=== PATIENT | female | born 1985 | race African-American/Black ===

== ENCOUNTER 2019-06-21 20:30 | Emergency (ER) | payer BC ==
[~2019-06-21] VITALS: Ht 160 cm; Wt 61.7 kg
--- NOTE | 2019-06-21 20:45 | NUR ---
Dr. Maradiaga at bedside for MSE
--- NOTE | 2019-06-21 20:50 | NUR ---
Patient ambulating with steady gait. A&O x4. c/o abdominal pain that started yesterday. Patient states that she is 6 weeks . Patient also states that vaginal bleeding noted 1 hour [facility] at ER. Breathing even and unlabored. Speech is clear and able to make needs known / follow commands. and kids at bedside.
[2019-06-21 21:08] LABS: BASOPHILS % (AUTO) 0.2 % (0.0-2.0); EOSINOPHILS # (AUTO) 0.1 K/uL (0.0-0.7); EOSINOPHILS % (AUTO) 0.6 % (0.0-7.0); HEMATOCRIT 38.7 % (31.2-41.9); HEMOGLOBIN 12.4 g/dL (10.9-14.3); LYMPHOCYTES # (AUTO) 1.7 K/uL (20.0-40.0); LYMPHOCYTES % (AUTO) 21.3 % (20.5-51.5); MEAN CORPUSCULAR HEMOGLOBIN 26.5 uug (24.7-32.8); MEAN CORPUSCULAR HGB CONC 32 g/dL (32.3-35.6); MEAN CORPUSCULAR VOLUME 82.7 fL (75.5-95.3); MONOCYTES # (AUTO) 0.7 K/uL (2.0-10.0); MONOCYTES % (AUTO) 8.6 % (0.0-11.0); NEUTROPHILS # (AUTO) 5.5 K/uL (1.8-8.9); NEUTROPHILS % (AUTO) 69.3 % (38.5-71.5); PLATELET COUNT (AUTO) 161 K/uL (179-408); RED BLOOD CELL COUNT(AUTO) 4.69 MIL/uL (3.63-4.92)
--- NOTE | 2019-06-21 21:44 | NUR ---
US at bedside
--- NOTE | 2019-06-21 22:21 | NUR ---
Patient discharged to home in stable conditon. Written and verbal after care instructions given. Patient verbalizes understanding of instructions. Patient ambulating with steady gait
[2019-06-21 22:30] VITALS: BP 122/73
== END 2019-06-21 22:21 | disposition home or self-care (01) ==
LOC: ER 20:47
DX: O03.9 Complete or unspecified spontaneous abortion without complication (principal); Z3A.00 Weeks of gestation of pregnancy not specified
CPT/HCPCS: 36415; 76856; 85025; A4663